=== PATIENT | male | born 1975 | race African-American/Black ===

== ENCOUNTER 2017-05-29 17:22 | Emergency (ER) | payer OTHER ==
[~2017-05-29] VITALS: Ht 175.3 cm; Wt 65.8 kg
[~2017-05-29 17:22] MED LIST: AUGMENTIN875 MG PO; FLEXERIL10 MG PO; MOTRIN800 MG PO; NAPROSYN500 MG PO; NORCO 10/3251 TABLET PO; ULTRAM50 MG PO
[2017-05-29 19:00] VITALS: BP 145/97
== END 2017-05-29 19:00 | disposition home or self-care (01) ==
LOC: EME 17:22
PROC: 2W3EX1Z Immobilization of Right Hand using Splint (ICD-10-PCS; principal; 2017-05-29)
DX: S60.221A Contusion of right hand, initial encounter (principal); Y04.0XXA Assault by unarmed brawl or fight, initial encounter
CPT/HCPCS: 73130; 99281; 99283